=== PATIENT | female | born 1980 | race Caucasian/White ===

== ENCOUNTER → 2017-08-16 | Outpatient (CLI) | payer OTHER ==
[~2017-08-16] MED LIST: ALDACTONE25 MG PO; ASPIR 8181 MG PO; CALCIUM 600 +1 EAC1 PO; CELEXA20 MG PO; CENTRUM SILVER1 EAC4 PO; CYMBALTA30 MG PO; DARVOCET-N 1001 EACH PO; FLOMAX PO; HUMALOG MI100 UNIT/2 SQ; KLOR-CON 1010 MEQ PO; LANTUS SOL100 UNIT/1 SQ; LASIX 20 MG TAB20 MG PO; LISINOPRIL20 MG PO; LOPRESSOR50 PO; MAGOX 400400 MG PO; NOHOMEMEDICATIONS; OMEPRAZOLE20 M2 PO; PLAVIX 75 MG TA75 M1 PO; ULTRAM 50MG TAB50 MG PO; VIBRAMYCIN 100100 M2 PO; VITAMINC500 PO; XANAX1 MG PO; ZOFRAN ODT4 MG PO
[2017-08-16 12:49] LABS: CALCIUM 8.4 mg/dL (8.5-10.1); CREATININE 0.7 mg/dL (0.6-1.3); POTASSIUM 3.7 mmol/L (3.5-5.1)
== END ==
LOC: M.LAB 12:25
DX: R53.83 Other fatigue (principal)

== ENCOUNTER → 2017-09-19 | Outpatient (CLI) | payer OTHER | LOC: M.MRI 13:38 | DX: J32.9 Chronic sinusitis, unspecified (principal); R11.2 Nausea with vomiting, unspecified; H53.9 Unspecified visual disturbance; R42 Dizziness and giddiness ==

== ENCOUNTER → 2018-02-01 | Outpatient (CLI) | payer OTHER | LOC: M.RAD 10:58 | DX: M79.642 Pain in left hand (principal); M79.641 Pain in right hand; F10.99 Alcohol use, unspecified with unspecified alcohol-induced disorder; Z79.899 Other long term (current) drug therapy ==

== ENCOUNTER → 2018-06-06 | Outpatient (CLI) | payer OTHER | LOC: M.LAB 14:39 | DX: R14.0 Abdominal distension (gaseous) (principal) ==

== ENCOUNTER → 2018-06-08 | Outpatient (CLI) | payer OTHER | LOC: M.RAD 08:43 | DX: R13.10 Dysphagia, unspecified (principal) ==

== ENCOUNTER 2018-06-18 19:10 | Emergency (ER) | payer OTHER ==
[~2018-06-18] VITALS: Ht 170.2 cm; Wt 86.2 kg
[2018-06-18] MEDS ORDERED: OMEPRAZOLE40 MG (19:29)
[2018-06-18] MEDS ORDERED: CYMBALTA30 MG (19:29)
[2018-06-18] MEDS ORDERED: IBUPROFEN 800800 M1 PO (20:48)
[2018-06-18] MEDS ORDERED: MEDROLDOSEPACK PO (20:48)
[2018-06-18 21:01] VITALS: BP 121/73
--- NOTE | 2018-06-19 10:16 | EKG ---
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
== END 2018-06-18 21:04 | disposition home or self-care (01) ==
LOC: M.ERS 19:10
DX: M94.0 Chondrocostal junction syndrome [Tietze] (principal); Z87.442 Personal history of urinary calculi

== ENCOUNTER → 2018-08-02 | Outpatient (CLI) | payer OTHER ==
[~2018-08-02] MED LIST changes: +CYMBALTA30 MG; +IBUPROFEN 800800 M1 PO; +MEDROLDOSEPACK PO; +OMEPRAZOLE40 MG
== END ==
LOC: M.LAB 09:59 → M.CT 11:00
DX: R14.0 Abdominal distension (gaseous) (principal); Z90.49 Acquired absence of other specified parts of digestive tract

== ENCOUNTER → 2018-10-11 | Outpatient (CLI) | payer OTHER | LOC: M.ULTRA 13:02 | DX: E01.0 Iodine-deficiency related diffuse (endemic) goiter (principal) ==

== ENCOUNTER 2019-01-03 15:01 | Emergency (ER) | payer OTHER ==
[~2019-01-03] VITALS: Ht 170.2 cm; Wt 86.2 kg
[2019-01-03] MEDS ORDERED: BUSPIRONE HCL10 MG PO (15:24)
[2019-01-03] MEDS ORDERED: METFORMIN HCL500 MG PO (15:24)
[2019-01-03 16:39] VITALS: BP 122/85
== END 2019-01-03 16:39 | disposition home or self-care (01) ==
LOC: M.ERS 15:01
DX: M79.671 Pain in right foot (principal); M25.474 Effusion, right foot; F32.9 Major depressive disorder, single episode, unspecified; E28.2 Polycystic ovarian syndrome; F41.9 Anxiety disorder, unspecified; Z90.49 Acquired absence of other specified parts of digestive tract; Z98.890 Other specified postprocedural states; Z87.442 Personal history of urinary calculi

== ENCOUNTER → 2019-02-21 | Outpatient (CLI) | payer OTHER ==
[~2019-02-21] MED LIST changes: +BUSPIRONE HCL10 MG PO; +METFORMIN HCL500 MG PO
== END ==
LOC: M.ULTRA 12:52
DX: E28.2 Polycystic ovarian syndrome (principal)

== ENCOUNTER → 2019-11-20 | Outpatient (CLI) | payer OTHER | LOC: M.ULTRA 09:55 | PROVIDERS: ATTEND Physician Assistant | DX: N88.8 Other specified noninflammatory disorders of cervix uteri (principal); E28.2 Polycystic ovarian syndrome; R93.89 Abnormal findings on diagnostic imaging of other specified body structures ==

== ENCOUNTER 2020-01-24 20:07 | Emergency (ER) | payer OTHER ==
[~2020-01-24] VITALS: Ht 170.2 cm; Wt 86.2 kg
[2020-01-24] MEDS ORDERED: PROZAC10 M1 PO (20:18)
[2020-01-24] MEDS ORDERED: PROTONIX40 M2 PO (20:19)
[2020-01-24 21:38] VITALS: BP 130/72
== END 2020-01-24 21:39 | disposition home or self-care (01) ==
LOC: M.ERS 20:07
DX: J06.9 Acute upper respiratory infection, unspecified (principal); Z20.828 Contact with and (suspected) exposure to other viral communicable diseases; Z79.899 Other long term (current) drug therapy

== ENCOUNTER 2020-03-31 10:09 | Emergency (ER) | payer OTHER ==
[~2020-03-31] VITALS: Ht 170.2 cm; Wt 86.2 kg
[~2020-03-31 10:09] MED LIST changes: +PROTONIX40 M2 PO; +PROZAC10 M1 PO
[2020-03-31 10:15] VITALS: BP 116/83
[2020-03-31] MEDS ORDERED: ONDANSETRON HCL4 M2 PO (10:42)
== END 2020-03-31 11:09 | disposition home or self-care (01) ==
LOC: M.ERS 10:09
DX: U07.1 COVID-19 (principal); R19.7 Diarrhea, unspecified; F32.9 Major depressive disorder, single episode, unspecified; F41.9 Anxiety disorder, unspecified; Z98.890 Other specified postprocedural states; Z87.442 Personal history of urinary calculi; Z90.49 Acquired absence of other specified parts of digestive tract; Z79.899 Other long term (current) drug therapy

== ENCOUNTER → 2020-06-02 | Outpatient (CLI) | payer OTHER ==
[~2020-06-02] MED LIST changes: +ONDANSETRON HCL4 M2 PO
[2020-06-02 14:42] LABS: ABSOLUTE BASOPHILS 0.1 thou/uL (0.0-0.2); ABSOLUTE EOSINOPHILS 0.3 thou/uL (0.0-0.7); ABSOLUTE LYMPHOCYTES 2.4 thou/uL (0.8-5.3); ABSOLUTE MONOCYTES 1.2 thou/uL (0.0-1.2); ABSOLUTE NEUTROPHILS 8.8 thou/uL (1.6-8.1); BASOPHILS 1.1 %; EOSINOPHILS 2.7 %; HEMATOCRIT 36.1 % (37.0-47.0); HEMOGLOBIN 11.9 gm/dL (12.0-15.0); LYMPHOCYTES 18.8 %; MCH 28.8 pg (26.0-34.0); MCHC 32.9 g/dL (28.0-37.0); MCV 87.3 fL (80.0-100.0); MONOCYTES 9.1 %; MPV 6.6 fl. (7.2-11.1); NUCLEATED RBCS 0 /100WBC; PLATELET COUNT* 432 thou/uL (150-400); POLYS 68.3 %; RBC 4.13 mil/uL (4.20-5.00); WBC 12.8 thou/uL (4.0-11.0)
[2020-06-02 14:53] LABS: ALBUMIN 3.7 g/dL (3.4-5.0); CALCIUM 8.5 mg/dL (8.5-10.1); CREATININE 0.7 mg/dL (0.6-1.3); TOTAL BILIRUBIN 0.1 mg/dL (<0.1-1.0); TOTAL PROTEIN 7.4 g/dL (6.4-8.2)
[2020-06-03 07:35] LABS: TESTOSTERONE 16 ng/dL (8-48)
== END ==
LOC: M.LAB 14:24
PROVIDERS: ATTEND Obstetrics & Gynecology
DX: E28.2 Polycystic ovarian syndrome (principal); R10.30 Lower abdominal pain, unspecified

== ENCOUNTER → 2020-08-07 | Outpatient (CLI) | payer OTHER | LOC: M.CT 07:37 | PROVIDERS: ATTEND Physician Assistant | DX: R10.31 Right lower quadrant pain (principal); M54.5 Low back pain ==

== ENCOUNTER → 2020-09-03 | Outpatient (CLI) | payer OTHER ==
[2020-09-03 16:20] LABS: ABSOLUTE BASOPHILS 0.1 thou/uL (0.0-0.2); ABSOLUTE EOSINOPHILS 0.3 thou/uL (0.0-0.7); ABSOLUTE LYMPHOCYTES 2.3 thou/uL (0.8-5.3); ABSOLUTE MONOCYTES 1.2 thou/uL (0.0-1.2); ABSOLUTE NEUTROPHILS 7.6 thou/uL (1.6-8.1); EOSINOPHILS 2.4 %; HEMATOCRIT 36.4 % (37.0-47.0); HEMOGLOBIN 11.7 gm/dL (12.0-15.0); LYMPHOCYTES 20.3 %; MCH 27.9 pg (26.0-34.0); MCHC 32.2 g/dL (28.0-37.0); MCV 86.5 fL (80.0-100.0); MONOCYTES 10.4 %; MPV 6.6 fl. (7.2-11.1); NUCLEATED RBCS 0 /100WBC; PLATELET COUNT* 442 thou/uL (150-400); POLYS 65.9 %; RBC 4.21 mil/uL (4.20-5.00); RDW-CV 15.6 % (10.5-14.5); WBC 11.5 thou/uL (4.0-11.0)
[2020-09-03 17:27] LABS: ESR (SEDRATE) 9 mm/hr (0-20)
[2020-09-04 12:07] LABS: ANTI-DNA SCREEN 1 IU/mL (0-9)
[2020-09-04 21:06] LABS: ANA INTERPRETATION Positive (())
== END ==
LOC: M.LAB 15:53
PROVIDERS: ATTEND Family Medicine
DX: D72.829 Elevated white blood cell count, unspecified (principal); R21 Rash and other nonspecific skin eruption; M25.50 Pain in unspecified joint

== ENCOUNTER 2021-01-14 12:35 | Emergency (ER) | payer OTHER ==
[~2021-01-14] VITALS: Ht 170.1 cm; Wt 91.2 kg
[~2021-01-14 12:35] MED LIST changes: +AZELASTINE137 MCG/0. INH; +MELATONIN10 M3 PO
[2021-01-14 13:27] VITALS: BP 149/55
== END 2021-01-14 13:28 | disposition home or self-care (01) ==
LOC: M.ERS 12:35
DX: U07.1 COVID-19 (principal); K21.9 Gastro-esophageal reflux disease without esophagitis; Z98.890 Other specified postprocedural states

== ENCOUNTER → 2021-02-01 | Outpatient (CLI) | payer OTHER ==
[2021-02-01 13:12] LABS: URINE BILIRUBIN NEGATIVE (Negative); URINE BLOOD NEGATIVE (Negative); URINE CLARITY CLEAR; URINE COLOR YELLOW; URINE GLUCOSE-RANDOM NEGATIVE (Negative); URINE KETONES NEGATIVE (Negative); URINE LEUKOCYTES-REFLEX NEGATIVE (Negative); URINE NITRITE-REFLEX NEGATIVE (Negative); URINE PROTEIN NEGATIVE (Negative); URINE SPECIFIC GRAVITY 1.015 (1.005-1.030); URINE UROBILINOGEN 0.2 E.U./dl (0.2-1.0)
[2021-02-01 14:39] LABS: ABSOLUTE BASOPHILS 0.1 thou/uL (0.0-0.2); ABSOLUTE EOSINOPHILS 0.5 thou/uL (0.0-0.7); ABSOLUTE LYMPHOCYTES 2.3 thou/uL (0.8-5.3); ABSOLUTE MONOCYTES 1.1 thou/uL (0.0-1.2); ABSOLUTE NEUTROPHILS 7.2 thou/uL (1.6-8.1); BASOPHILS 0.6 %; EOSINOPHILS 4.1 %; HEMATOCRIT 34.3 % (37.0-47.0); HEMOGLOBIN 11.2 gm/dL (12.0-15.0); LYMPHOCYTES 20.9 %; MCH 26.8 pg (26.0-34.0); MCHC 32.7 g/dL (28.0-37.0); MCV 82.1 fL (80.0-100.0); MONOCYTES 9.5 %; NUCLEATED RBCS 0 /100WBC; PLATELET COUNT* 420 thou/uL (150-400); POLYS 64.9 %; RBC 4.18 mil/uL (4.20-5.00); RDW-CV 17.4 % (10.5-14.5); WBC 11.1 thou/uL (4.0-11.0)
[2021-02-01 14:57] LABS: ALBUMIN 3.7 g/dL (3.4-5.0); CALCIUM 8.5 mg/dL (8.5-10.1); CREATININE 0.9 mg/dL (0.6-1.3); POTASSIUM 3.7 mmol/L (3.5-5.1); TOTAL BILIRUBIN 0.2 mg/dL (<0.1-1.0); TOTAL PROTEIN 7.3 g/dL (6.4-8.2)
[2021-02-01 15:54] LABS: ESR (SEDRATE) 20 mm/hr (0-20)
[2021-02-01 21:05] LABS: COMPLEMENT-C4 22 mg/dL (12-38); IgA 138 mg/dL (87-352); IgG 1146 mg/dL (586-1602); IgM 52 mg/dL (26-217)
[2021-02-01 23:06] LABS: THYROID PEROXIDASE (TPO) AB 9 IU/mL (0-34)
[2021-02-02 08:07] LABS: HEPATITIS B SURFACE AG Negative (Negative)
[2021-02-02 09:07] LABS: ANTI-SSA <0.2 AI (0.0-0.9); ANTIJO-I AB <0.2 AI (0.0-0.9)
[2021-02-02 12:07] LABS: C-PEPTIDE 10.3 ng/mL (1.1-4.4)
[2021-02-02 14:07] LABS: GLOBULIN TOTAL 3.3 g/dL (2.2-3.9); M-SPIKE Not Observed g/dL (Not Observed)
== END ==
LOC: M.LAB 10:16
DX: E55.9 Vitamin D deficiency, unspecified (principal); I73.00 Raynaud's syndrome without gangrene; M54.5 Low back pain; R53.83 Other fatigue; H04.123 Dry eye syndrome of bilateral lacrimal glands; M25.59 Pain in other specified joint; M70.60 Trochanteric bursitis, unspecified hip; R76.0 Raised antibody titer

== ENCOUNTER → 2021-02-24 | Outpatient (CLI) | payer OTHER ==
[2021-02-24 23:06] LABS: IgA 151 mg/dL (87-352)
[2021-02-26 15:08] LABS: GLIADIN IGA AB 3 units (0-19)
== END ==
LOC: M.LAB 13:21
DX: H04.123 Dry eye syndrome of bilateral lacrimal glands (principal); M25.59 Pain in other specified joint; I73.00 Raynaud's syndrome without gangrene; M70.60 Trochanteric bursitis, unspecified hip; R76.0 Raised antibody titer; R53.83 Other fatigue